=== PATIENT | male | born 1960 | race African-American/Black ===

== ENCOUNTER 2020-07-01 01:55 | Inpatient (IN) | payer MEDICAID ==
[~2020-07-01] VITALS: Ht 165.1 cm; Wt 95.1 kg
[2020-07-01] MEDS ORDERED: MORPHINE SULFATE 4 MG/ML CPJ (NOT FOR IM USE) IV STA (02:30)
[2020-07-01] MEDS ORDERED: ONDANSETRON HCL 4MG/2ML INJ IV STA (02:30)
[2020-07-01] MEDS ORDERED: ASPIRIN 81MG TABLET PO ONE (02:30)
[2020-07-01] MEDS ORDERED: NITROGLYCERIN OINT 1GM/INCH UDPKT TD ONE (02:30)
[2020-07-01 02:54] LABS: BASOPHILS % 0.7 % (0.0-2.0); EOSINOPHILS % 2.9 % (0.0-5.0); HEMATOCRIT. 37.1 % (42.0-52.0); HEMOGLOBIN. 12.6 g/dL (14.0-18.0); LYMPHOCYTES % 20.6 % (20.0-50.0); MEAN CORPUSCULAR VOLUME 82.5 fL (80.0-94.0); MEAN PLATELET VOLUME 8.6 fl (7.4-10.4); MONOCYTES % 7.9 % (2.0-8.0); NEUTROPHILS % 67.9 % (40.0-76.0); PLATELET 259 x1000/uL (130-400); RED CELL DISTRIBUTION WIDTH 16.4 % (11.6-14.6)
[2020-07-01 03:03] LABS: CHLORIDE 107 mEq/L (98-107)
[2020-07-01 03:06] LABS: ETHANOL BLOOD < 10 mg/dL
[2020-07-01] MEDS ORDERED: ACETAMINOPHEN 325MG TABLET PO PRN (09:15)
[2020-07-01] MEDS ORDERED: ONDANSETRON HCL 4MG/2ML INJ IV PRN (09:15)
[2020-07-01] MEDS ORDERED: LORAZEPAM 2MG/ML CPJ IV PRN (10:30)
[2020-07-01] MEDS ORDERED: HALOPERIDOL LACTATE 5MG/ML VIAL IM PRN (10:30)
[2020-07-01] MEDS ORDERED: HYDROCODONE/ACETAMINOPHEN 10/325MG TABLET PO PRN (23:00)
[2020-07-02] VITALS: BP 177/86
[2020-07-02 00:28] VITALS: BP 140/75
[2020-07-02] MEDS ORDERED: NITROGLYCERIN OINT 1GM/INCH UDPKT TD NR (00:30)
[2020-07-02 04:00] VITALS: BP 134/79
[2020-07-02] MEDS: NITROGLYCERIN OINT 1GM/INCH UDPKT TD SCH ×2 (06:37→13:24)
[2020-07-02 08:12] VITALS: BP 131/75
[2020-07-02] MEDS ORDERED: ENOXAPARIN 30MG/0.3ML SYR SUBCUT SCH (09:00)
[2020-07-02] MEDS ORDERED: ASPIRIN 81MG TABLET PO SCH (09:00)
[2020-07-02] MEDS ORDERED: AMLODIPINE 10MG TABLET PO SCH (09:00)
[2020-07-02] MEDS ORDERED: NICOTINE 7MG PATCH TD SCH (09:00)
[2020-07-02 09:28] LABS: BASOPHILS % 0.4 % (0.0-2.0); EOSINOPHILS % 2.1 % (0.0-5.0); HEMATOCRIT. 35.4 % (42.0-52.0); HEMOGLOBIN. 11.8 g/dL (14.0-18.0); LYMPHOCYTES % 14.1 % (20.0-50.0); MEAN CORPUSCULAR HEMOGLOBIN 27.9 pg (28.0-32.0); MEAN CORPUSCULAR VOLUME 83.8 fL (80.0-94.0); MEAN PLATELET VOLUME 8.9 fl (7.4-10.4); MONOCYTES % 6.7 % (2.0-8.0); NEUTROPHILS % 76.7 % (40.0-76.0); PLATELET 240 x1000/uL (130-400); RED BLOOD CELL COUNT 4.23 mill/uL (4.7-6.1)
[2020-07-02 09:36] LABS: CHLORIDE 107 mEq/L (98-107)
[2020-07-02 09:45] LABS: LDL CHOLESTEROL 89 mg/dL (5-100)
[2020-07-02 09:46] LABS: HDL CHOLESTEROL 60 mg/dL (40-59)
[2020-07-02 12:05] VITALS: BP 103/54
[2020-07-02 14:22] LABS: *AMPHETAMINES SCREEN URINE NEGATIVE (NEGATIVE)
[2020-07-02 14:23] LABS: *BARBITURATES SCREEN URINE NEGATIVE (NEGATIVE); *BENZODIAZEPINES SCREEN URINE NEGATIVE (NEGATIVE); *COCAINE SCREEN URINE NEGATIVE (NEGATIVE); METHADONE URINE SCREEN NEGATIVE (NEGATIVE); OPIATES URINE SCREEN PRESUMTIVE POSITIVE (NEGATIVE); PHENCYCLIDINE URINE SCREEN PRESUMTIVE POSITIVE (NEGATIVE)
[2020-07-02 14:24] LABS: CANNABINOID URINE SCREEN NEGATIVE (NEGATIVE)
== END 2020-07-02 16:29 | disposition left against medical advice (07) | DRG 203 ==
LOC: ER 01:55 → 6WST 04:28 → EDBEDREQTM 05:07 → EDBEDREQ 05:07 → ENRESERV 21:07 → 6WST 23:31
PROVIDERS: ADMIT Internal Medicine; ATTEND Internal Medicine
DX: M94.0 Chondrocostal junction syndrome [Tietze] (principal); I10 Essential (primary) hypertension; F17.210 Nicotine dependence, cigarettes, uncomplicated; D64.9 Anemia, unspecified; R45.1 Restlessness and agitation; Z20.822 Contact with and (suspected) exposure to COVID-19; Z82.49 Family history of ischemic heart disease and other diseases of the circulatory system; Z78.1 Physical restraint status
CPT/HCPCS: 36415; 71045; 80053; 80061; 80305; 80320; 82962; 83036; 83880; 84145; 84443; 84484; 85025; 87426; 93005; 96374; 99285; J1630; J1650; J2060; J2270; J2405; G0480